=== PATIENT | female | born 1990 | race Caucasian/White ===

== ENCOUNTER 2016-12-07 11:02 | Emergency (ER) | payer OTHER ==
[2016-12-07 11:54] LABS: CALCIUM 9.1 mg/dL (8.5-10.1); CARBON DIOXIDE 22.9 mmol/L (21-32); CHLORIDE SERUM 101 mmol/L (98-107); CREATININE SERUM 0.7 mg/dL (0.6-1.0); GFR1 > 60 mL/min; GLUCOSE SERUM 134 mg/dL (74-106); SODIUM SERUM 135 mmol/L (136-145)
[2016-12-07 13:50] VITALS: BP 133/70
== END 2016-12-07 13:50 | disposition home or self-care (01) ==
LOC: ED 11:02
PROVIDERS: Emergency Medicine
DX: J06.9 Acute upper respiratory infection, unspecified (principal); M79.1 Myalgia; F31.9 Bipolar disorder, unspecified
CPT/HCPCS: J2405; J7030; Q0092

== ENCOUNTER 2018-08-26 17:42 | Emergency (ER) | payer OTHER ==
[~2018-08-26] VITALS: Ht 170.2 cm; Wt 97.1 kg
[2018-08-26 18:07] VITALS: Ht 170.2 cm; Wt 97.1 kg
[2018-08-26 19:13] LABS: CALCIUM 9.6 mg/dL (8.5-10.1); CARBON DIOXIDE 22.6 mmol/L (21-32); CHLORIDE SERUM 103 mmol/L (98-107); CREATININE SERUM 0.9 mg/dL (0.6-1.0); GFR1 > 60 mL/min; GLUCOSE SERUM 150 mg/dL (74-106); POTASSIUM SERUM 3.1 mmol/L (3.5-5.1); SODIUM SERUM 143 mmol/L (136-145)
[2018-08-26 19:15] LABS: microscopic required? YES; urine erythrocyte 2+ (NEGATIVE)
[2018-08-26 19:17] LABS: ALBUMIN 4.6 g/dL (3.4-5.0); ALKALINE PHOSPHATASE 94 U/L (46-116); ALT/SGPT 28 U/L (14-59); AST/SGOT 16 U/L (15-37); BILIRUBIN TOTAL 0.67 mg/dL (0.20-1.00); LIPASE 89 IU/L (73-393)
[2018-08-26 19:19] LABS: TOTAL PROTEIN, SERUM 9.3 g/dL (6.4-8.2)
[2018-08-26 19:23] LABS: BASOPHIL % 0.2 % (0-2)
[2018-08-26 19:27] LABS: PLATELET COUNT 468 x10^3mcL (130-400); RED CELL DISTRIBUTION WIDTH 17.4 % (11.5-14.5)
[2018-08-26 19:27] LABS: AMPHETAMINE QUAL UR NONE DETECTED (See below)
[2018-08-27 00:16] VITALS: BP 143/92
== END 2018-08-27 00:16 | disposition home or self-care (01) ==
LOC: ED 17:42
PROVIDERS: Emergency Medicine
DX: R10.13 Epigastric pain (principal); R10.11 Right upper quadrant pain; E87.6 Hypokalemia; R11.10 Vomiting, unspecified; S50.11XA Contusion of right forearm, initial encounter; S81.802A Unspecified open wound, left lower leg, initial encounter; F12.90 Cannabis use, unspecified, uncomplicated; F31.9 Bipolar disorder, unspecified; X58.XXXA Exposure to other specified factors, initial encounter; Y93.89 Activity, other specified; Y92.89 Other specified places as the place of occurrence of the external cause; Y99.8 Other external cause status
CPT/HCPCS: 90715; J1885; J2405; Q0092

== ENCOUNTER 2018-08-27 20:59 | Emergency (ER) | payer OTHER ==
[~2018-08-27] VITALS: Ht 170.2 cm; Wt 101.2 kg
[2018-08-27 21:13] VITALS: Ht 170.2 cm; Wt 101.2 kg
[2018-08-27 22:25] VITALS: BP 142/98
== END 2018-08-27 22:25 | disposition home or self-care (01) ==
LOC: ED 20:59
DX: S61.012D Laceration without foreign body of left thumb without damage to nail, subsequent encounter (principal); S61.211D Laceration without foreign body of left index finger without damage to nail, subsequent encounter; S61.213D Laceration without foreign body of left middle finger without damage to nail, subsequent encounter; S81.812D Laceration without foreign body, left lower leg, subsequent encounter; F31.9 Bipolar disorder, unspecified; E86.0 Dehydration; R11.10 Vomiting, unspecified; W22.8XXD Striking against or struck by other objects, subsequent encounter

== ENCOUNTER 2018-09-01 10:14 | Emergency (ER) | payer OTHER ==
[~2018-09-01] VITALS: Ht 170.2 cm; Wt 101.3 kg
[2018-09-01 10:17] VITALS: BP 147/98; Ht 170.2 cm; Wt 101.3 kg
== END 2018-09-01 10:52 | disposition home or self-care (01) ==
LOC: ED 10:14
DX: S61.213D Laceration without foreign body of left middle finger without damage to nail, subsequent encounter (principal); S81.822D Laceration with foreign body, left lower leg, subsequent encounter; F31.9 Bipolar disorder, unspecified; F60.9 Personality disorder, unspecified; X58.XXXD Exposure to other specified factors, subsequent encounter